=== PATIENT | female | born 1965 | race Caucasian/White ===

== ENCOUNTER 2020-10-24 10:12 | Emergency (ER) | payer MEDICAID ==
[~2020-10-24] VITALS: Ht 154.9 cm; Wt 109.3 kg
[2020-10-24 10:49] LABS: BASOPHILS % (AUTO) 0.7 % (0-1); EOSINOPHILS # (AUTO) 0.1 X10'3 (0-0.9); EOSINOPHILS % (AUTO) 2.1 % (0-6); HEMATOCRIT 42.9 % (35.0-45.0); HEMOGLOBIN 14.7 g/dl (12.0-16.0); LYMPHOCYTES % (AUTO) 30.7 % (21-51); MEAN CORPUSCULAR HGB CONC 34.2 g/dL (33.0-36.5); MEAN CORPUSCULAR VOLUME 84.7 FL (78-98); MEAN PLATELET VOLUME 8.8 FL (7.4-10.4); MONOCYTES # (AUTO) 0.6 X10'3 (0-0.9); MONOCYTES % (AUTO) 9.4 % (2-12); NEUTROPHILS # (AUTO) 3.7 X10'3 (1.8-7.7); NEUTROPHILS % (AUTO) 57.1 % (42-75); PLATELET COUNT 207 X10'3 (140-440); RED BLOOD COUNT 5.07 X10'6 (4.20-5.60); RED CELL DISTRIBUTION WIDTH 13.8 % (11.5-14.5); WHITE BLOOD COUNT 6.5 X10'3 (4.5-11.0)
[2020-10-24 11:04] LABS: ALANINE AMINOTRANSFERASE 48 U/L (12-78); ALBUMIN 3.9 G/DL (3.4-5.0); ALKALINE PHOSPHATASE 67 IU/L (46-116); AMYLASE 46 U/L (25-115); ANION GAP 6 (8-16); ASPARTATE AMINO TRANSFERASE 31 U/L (10-37); BILIRUBIN,TOTAL 0.3 MG/DL (0.1-1.0); BLOOD UREA NITROGEN 26 MG/DL (7-18); BUN/CREATININE RATIO 30.6 (6.6-38.0); CALCIUM 9.9 MG/DL (8.5-10.1); CHLORIDE 105 MMOL/L (99-107); CREATININE 0.85 MG/DL (0.40-0.90); GLUCOSE 104 MG/DL (70-104); LIPASE 146 U/L (73-393); POTASSIUM 4.4 MMOL/L (3.5-5.1); SODIUM 140 MMOL/L (135-145); TOTAL CARBON DIOXIDE 29.1 MMOL/L (24-32); TOTAL PROTEIN 7.7 G/DL (6.4-8.2); eGFR 70 ML/MIN
[2020-10-24 12:05] LABS: URINE HCG NEGATIVE (NEG)
[2020-10-24 12:09] LABS: CLARITY,URINE SLIGHTLY CLOUDY (Clear); COLOR,URINE YELLOW (Yellow); GLUCOSE, URINE NEGATIVE (Neg); KETONES,URINE NEGATIVE (Neg); LEUKOCYTE ESTERASE ,URINE NEGATIVE (Neg); NITRITES, URINE NEGATIVE (Neg); OCCULT BLOOD,URINE NEGATIVE (Neg); PROTEIN,URINE NEGATIVE (Neg); UROBILINOGEN,URINE 0.2 E.U/dL (0.2-1.0)
[2020-10-24 12:17] LABS: UA COLLECTION TYPE CLN CATCH MIDSTREAM
[2020-10-24 12:22] LABS: SQUAMOUS EPITHELIAL CELL,UR MODERATE /LPF (FEW)
[2020-10-24 12:25] LABS: BACTERIA,URINE FEW /HPF (Neg); RBC,URINE NONE SEEN /HPF (0-2); WBC,URINE 0-4 /HPF (0-4)
[2020-10-24] MEDS ORDERED: morphine 4 MG/ML inj SYRINge IV ONE (12:40)
[2020-10-24] MEDS ORDERED: ondansetron/PF 4mg/2ml inj IV ONE (12:40)
[2020-10-24] MEDS ORDERED: dicyclomine 10 MG capsule PO ONE (12:45)
[2020-10-24] MEDS ORDERED: pantoprazole 40 MG vial IV ONE (12:45)
[2020-10-24] MEDS ORDERED: LACT1CAP55 PO (14:02)
[2020-10-24] MEDS ORDERED: PANT-47 PO (14:03)
[2020-10-24] MEDS ORDERED: ONDA4TAB6 PO (14:03)
[2020-10-24 14:16] VITALS: BP 151/107
== END 2020-10-24 14:18 | disposition home or self-care (01) ==
LOC: ER 10:12
DX: K52.9 Noninfective gastroenteritis and colitis, unspecified (principal); R10.13 Epigastric pain; R10.11 Right upper quadrant pain; R11.10 Vomiting, unspecified; G89.29 Other chronic pain; Z79.899 Other long term (current) drug therapy
CPT/HCPCS: 36415; 80053; 81001; 81025; 82150; 83690; 84484; 85025; 93005; 96374; 96375; 99284; C9113; J2270; J2405

== ENCOUNTER 2021-01-24 05:29 | Inpatient (IN) | payer MEDICAID, OTHER ==
[2021-01-24] VITALS (18 sets, daily range): BP systolic 109–173; BP diastolic 65–104
[~2021-01-24] VITALS: Ht 154.9 cm; Wt 109.1 kg
[~2021-01-24 05:29] MED LIST: LACT1CAP55 PO; ONDA4TAB6 PO; PANT-47 PO
[2021-01-24] MEDS ORDERED: ondansetron/PF 4mg/2ml inj IV ONE (05:35)
[2021-01-24] MEDS ORDERED: morphine 4 MG/ML inj SYRINge IV PRN ×2 (05:35→13:50)
[2021-01-24] MEDS ORDERED: normal saline 1000ML IV soln IVB ONE (05:35)
[2021-01-24 06:21] LABS: BASOPHILS % (AUTO) 0.6 % (0-1); EOSINOPHILS # (AUTO) 0.1 X10'3 (0-0.9); EOSINOPHILS % (AUTO) 1.7 % (0-6); HEMATOCRIT 43.9 % (35.0-45.0); HEMOGLOBIN 14.9 g/dl (12.0-16.0); LYMPHOCYTES # (AUTO) 2.5 X10'3 (1.1-4.8); LYMPHOCYTES % (AUTO) 30.1 % (21-51); MEAN CORPUSCULAR HEMOGLOBIN 28.1 PG (27.0-31.0); MEAN CORPUSCULAR HGB CONC 33.8 g/dL (33.0-36.5); MEAN CORPUSCULAR VOLUME 82.9 FL (78-98); MEAN PLATELET VOLUME 9.3 FL (7.4-10.4); MONOCYTES # (AUTO) 0.6 X10'3 (0-0.9); MONOCYTES % (AUTO) 6.7 % (2-12); NEUTROPHILS % (AUTO) 60.9 % (42-75); PLATELET COUNT 229 X10'3 (140-440); WHITE BLOOD COUNT 8.2 X10'3 (4.5-11.0)
[2021-01-24 06:32] LABS: ALANINE AMINOTRANSFERASE 56 U/L (12-78); ALKALINE PHOSPHATASE 67 IU/L (46-116); ANION GAP 8 (8-16); ASPARTATE AMINO TRANSFERASE 34 U/L (10-37); BILIRUBIN,TOTAL 0.4 MG/DL (0.1-1.0); BLOOD UREA NITROGEN 19 MG/DL (7-18); BUN/CREATININE RATIO 22.6 (6.6-38.0); CALCIUM 10.1 MG/DL (8.5-10.1); CHLORIDE 104 MMOL/L (99-107); CREATININE 0.84 MG/DL (0.40-0.90); GLUCOSE 126 MG/DL (70-104); POTASSIUM 4.2 MMOL/L (3.5-5.1); SODIUM 140 MMOL/L (135-145); TOTAL CARBON DIOXIDE 28.5 MMOL/L (24-32); TOTAL PROTEIN 7.9 G/DL (6.4-8.2); eGFR 71 ML/MIN
[2021-01-24 06:36] LABS: LIPASE 106 U/L (73-393); TROPONIN I < 0.04 NG/ML (0.0-0.05)
[2021-01-24 06:41] LABS: CLARITY,URINE CLEAR (Clear); COLOR,URINE STRAW (Yellow); GLUCOSE, URINE NEGATIVE (Neg); KETONES,URINE NEGATIVE (Neg); LEUKOCYTE ESTERASE ,URINE NEGATIVE (Neg); NITRITES, URINE NEGATIVE (Neg); OCCULT BLOOD,URINE NEGATIVE (Neg); PROTEIN,URINE NEGATIVE (Neg); UROBILINOGEN,URINE 0.2 E.U/dL (0.2-1.0)
[2021-01-24 06:43] LABS: UA COLLECTION TYPE CLN CATCH MIDSTREAM
[2021-01-24] MEDS ORDERED: ondansetron/PF 4mg/2ml inj IV PRN ×2 (09:35→13:50)
[2021-01-24] MEDS ORDERED: bisacodyl 10mg suppository rectal RC PRN (09:35)
[2021-01-24] MEDS ORDERED: magnesium 2GM in 50ml NS 50 ML IV PRN (09:35)
[2021-01-24] MEDS ORDERED: potassium Cl 40MEQ/1/2NS 520ml 520 ML IV PRN ×2 (09:35)
[2021-01-24] MEDS ORDERED: magnesium 4gm in 100ml NS 100 ML IV PRN (09:35)
[2021-01-24] MEDS ORDERED: potassium Cl 20 mEq SR tablet PO PRN ×2 (09:35)
[2021-01-24] MEDS ORDERED: morphine 2 MG/ML inj. syringe IV PRN ×3 (09:35→13:50)
[2021-01-24] MEDS ORDERED: magnesium Cl slow-release 64mg tablet PO PRN (09:35)
[2021-01-24] MEDS ORDERED: acetaminophen 325mg tablet PO PRN (09:35)
--- NOTE | 2021-01-24 10:10 | NUR ---
Patient in room ED 13. I have received report from MARIA ALEJANDRA MICHELLE and had the opportunity to ask questions and assume patient care.
[2021-01-24] MEDS: normal saline 1000ml 1,000 ML IV SCH ×2 (11:08→20:06)
[2021-01-24] MEDS ORDERED: FLU VACC QS2020-21(6MOS UP)/PF 60 MCG/0.5 ML SYRINGE IMVAC ONE (11:25)
[2021-01-24] MEDS ORDERED: pneumococcal 23-VAL P-sac vacc 25 mcg/0.5ml vial IMVAC ONE (11:25)
[2021-01-24] MEDS ORDERED: INDOCYANINE GREEN 25 MG/10 ML VIAL IV STA ×2 (12:58→13:31)
[2021-01-24] MEDS ORDERED: proCHLORperazine 10 MG/2 ml inj IV PRN (13:50)
[2021-01-24] MEDS ORDERED: meperidine/PF 25mg/ml syringe IV PRN ×3 (13:50)
[2021-01-24] MEDS ORDERED: ringers solution, lacted 1,000 ML IV SCH (13:50)
[2021-01-24] MEDS ORDERED: LIDOcaine 1% 30ml preserv. free vial ONE (14:14)
[2021-01-24] MEDS ORDERED: BUPIVAcaine/PF 2.5 mg/ml (0.25%) 30ml vial ONE (14:15)
[2021-01-24] MEDS: ampicillin/sulbac 3gm/NS 100ml 100 ML IV SCH ×2 (14:31→20:06)
--- NOTE | 2021-01-24 14:51 | NUR ---
CALLED REPORT TO MIMI MERCADO RN
[2021-01-24] MEDS ORDERED: midazolam 1 mg/ML 2ml injection ONE (15:10)
[2021-01-24] MEDS ORDERED: fentaNYL /PF 50mcg/ml 5ml ampule ONE (15:11)
[2021-01-24] MEDS ORDERED: rocuronium 10mg/ml inj IV ONE (15:12)
[2021-01-24] MEDS ORDERED: dexamethasone sod phosphate 4mg/ml inj. ONE (15:12)
[2021-01-24] MEDS ORDERED: LIDOcaine 2% (20mg/ml) 5ml vial ONE (15:12)
[2021-01-24] MEDS ORDERED: propofol inj 20 ML IV ONE (15:12)
[2021-01-24] MEDS ORDERED: ondansetron/PF 4mg/2ml inj ONE (15:12)
[2021-01-24] MEDS ORDERED: ceFAZolin 1000mg inj ONE ×2 (15:29)
[2021-01-24] MEDS ORDERED: labetalol 20mg/4ml (5mg/ml) syringe IV ONE (16:15)
[2021-01-24] MEDS ORDERED: acetaminophen 1,000mg/100ml IV 100 ML IV ONE (16:17)
--- NOTE | 2021-01-24 16:34 | NUR ---
Received from OR via bed, accompanied by Anesthesiologist and report given by Anesthesiologist. PATIENT IS SLEEPING, ON O2 10L WITH MASK, PIV 20G ON RIGHT AC, FOUR BANDAGES ON ABD AT SURGICAL INCISION SITES, CDI WITH NO DRAINAGE OR BLEEDING. WILL MONITOR. Addendum: 01/24/21 at 1654 by Carmella Land RN Amended: Links added.
[2021-01-24] MEDS ORDERED: glycopyrrolate 0.2mg/ml inj ONE (16:47)
[2021-01-24] MEDS ORDERED: sevoflurane 250ml liquid IH ONE (16:47)
[2021-01-24] MEDS ORDERED: ePHEDrine 50MG/ML INJ. ONE (16:47)
[2021-01-24] MEDS ORDERED: HYDROcodone/acetaminophen 5mg/325mg tablet PO PRN (16:55)
--- NOTE | 2021-01-24 17:24 | NUR ---
Report called to receiving nurse LI. Transferred via BED WITH NO BELONGINGS. FOUR BANDAGES CDI ON ANTERIOR ABD, NO DRAINAGE OR BLEEDING FROM THE INCISION SITES, PIV ON LEFT AC LR RUNNING AT 100ML/HR, PATIENT STATES PAIN HAS IMPROVED AND DENIES PAIN AT THIS TIME. PATIENT IS AWAKE AND RESPONDS TO VOICE AND QUESTIONS. BED IS LOW, SIDE RAILS UP, RECEIVING NURSE AID IS AT THE BED SIDE, LI IS NOTIFIED THAT THE PATIENT WAS TRANSFERRED TO THE ROOM. Addendum: 01/24/21 at 1745 by Carmella Land RN Amended: Links added.
--- NOTE | 2021-01-24 18:48 | NUR ---
Problems reprioritized. Patient report given, questions answered & plan of care reviewed with MILLICENT MICHELLE.
[2021-01-24] MEDS: K and/or MAG REPLACEMENT MC SCH (20:00)
[2021-01-24] MEDS ORDERED: famotidine/PF 10 mg/ml inj IV SCH (20:00)
[2021-01-24] MEDS: lactobacillus rhamnosus 10,000 MMU CELLS/CAPSULE PO SCH (20:06)
[2021-01-24] MEDS: heparin, porcine 5000 units/ml vial SQ SCH (20:07)
[2021-01-24] MEDS: HYDROcodone/acetaminophen 10/325mg tab PO PRN (20:53)
[2021-01-25] VITALS: BP 143/76
[2021-01-25] MEDS: ampicillin/sulbac 3gm/NS 100ml 100 ML IV SCH ×2 (02:11→08:58)
[2021-01-25] MEDS: HYDROcodone/acetaminophen 10/325mg tab PO PRN ×3 (04:03→14:20)
[2021-01-25] MEDS: normal saline 1000ml 1,000 ML IV SCH ×2 (05:38→07:13)
--- NOTE | 2021-01-25 06:05 | NUR ---
Patient in room [facility] 344. I have received report from MIGUEL ANGEL Rice and had the opportunity to ask questions and assume patient care.
[2021-01-25 06:20] LABS: BASOPHILS % (AUTO) 0.1 % (0-1); EOSINOPHILS % (AUTO) 0 % (0-6); HEMATOCRIT 41.9 % (35.0-45.0); HEMOGLOBIN 14.3 g/dl (12.0-16.0); LYMPHOCYTES # (AUTO) 1.2 X10'3 (1.1-4.8); LYMPHOCYTES % (AUTO) 10.8 % (21-51); MEAN CORPUSCULAR HEMOGLOBIN 28.8 PG (27.0-31.0); MEAN CORPUSCULAR VOLUME 84.6 FL (78-98); MEAN PLATELET VOLUME 9.1 FL (7.4-10.4); MONOCYTES # (AUTO) 0.8 X10'3 (0-0.9); MONOCYTES % (AUTO) 7.4 % (2-12); NEUTROPHILS # (AUTO) 8.9 X10'3 (1.8-7.7); NEUTROPHILS % (AUTO) 81.7 % (42-75); PLATELET COUNT 232 X10'3 (140-440); RED BLOOD COUNT 4.95 X10'6 (4.20-5.60); RED CELL DISTRIBUTION WIDTH 14.2 % (11.5-14.5); WHITE BLOOD COUNT 10.9 X10'3 (4.5-11.0)
[2021-01-25 06:30] VITALS: BP 119/56
[2021-01-25 06:47] LABS: ALANINE AMINOTRANSFERASE 54 U/L (12-78); ALBUMIN 3.5 G/DL (3.4-5.0); ALBUMIN/GLOBULIN RATIO 0.9 (1.1-1.5); ALKALINE PHOSPHATASE 57 IU/L (46-116); ANION GAP 12 (8-16); ASPARTATE AMINO TRANSFERASE 34 U/L (10-37); BILIRUBIN,TOTAL 0.5 MG/DL (0.1-1.0); BLOOD UREA NITROGEN 10 MG/DL (7-18); BUN/CREATININE RATIO 12.5 (6.6-38.0); CHLORIDE 105 MMOL/L (99-107); GLUCOSE 128 MG/DL (70-104); POTASSIUM 4.1 MMOL/L (3.5-5.1); SODIUM 140 MMOL/L (135-145); TOTAL CARBON DIOXIDE 23.5 MMOL/L (24-32); TOTAL PROTEIN 7.3 G/DL (6.4-8.2); eGFR 75 ML/MIN
[2021-01-25] MEDS: K and/or MAG REPLACEMENT MC SCH (07:41)
[2021-01-25] MEDS: lactobacillus rhamnosus 10,000 MMU CELLS/CAPSULE PO SCH (08:58)
[2021-01-25] MEDS: heparin, porcine 5000 units/ml vial SQ SCH (08:59)
[2021-01-25] MEDS ORDERED: FLU VACC QS2020-21(6MOS UP)/PF 60 MCG/0.5 ML SYRINGE IMVAC ONE ×2 (10:00→16:45)
[2021-01-25] MEDS ORDERED: pneumococcal 23-VAL P-sac vacc 25 mcg/0.5ml vial IMVAC ONE ×2 (10:00→16:45)
[2021-01-25] MEDS ORDERED: HYDR-3972 PO ×2 (10:33→15:12)
[2021-01-25 11:00] VITALS: BP 110/66
--- NOTE | 2021-01-25 15:00 | NUR ---
DC inst provided to pt. IV DC'd, tip intact. 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
--- NOTE | 2021-01-25 15:30 | NUR ---
Problems reprioritized. Patient report given, questions answered & plan of care reviewed with MIGUEL ANGEL Beebe.
--- NOTE | 2021-01-25 15:37 | NUR ---
Pt has signed DC'g paperwork, IV has been DC'd, pt is wearing personal clothes to go home in, and denies any pain, questions or needs at this time. I shall observe pt until ride arrives.
== END 2021-01-25 18:46 | disposition home or self-care (01) | DRG 263 ==
LOC: ER 05:29 → ED HOLD 09:32 → SUR 3N 10:20
PROVIDERS: ADMIT Family Medicine; ATTEND Family Medicine
PROC: 8E0W4CZ Robotic Assisted Procedure of Trunk Region, Percutaneous Endoscopic Approach (ICD-10-PCS; 2021-01-24)
PROC: BF131ZZ Fluoroscopy of Gallbladder and Bile Ducts using Low Osmolar Contrast (ICD-10-PCS; 2021-01-24)
PROC: 0FT44ZZ Resection of Gallbladder, Percutaneous Endoscopic Approach (ICD-10-PCS; principal; 2021-01-24 15:02)
DX: K80.00 Calculus of gallbladder with acute cholecystitis without obstruction (principal); E66.9 Obesity, unspecified; B19.20 Unspecified viral hepatitis C without hepatic coma; G89.29 Other chronic pain; Z20.822 Contact with and (suspected) exposure to COVID-19; K21.9 Gastro-esophageal reflux disease without esophagitis; M54.9 Dorsalgia, unspecified; Z80.3 Family history of malignant neoplasm of breast; Z82.49 Family history of ischemic heart disease and other diseases of the circulatory system; Z98.891 History of uterine scar from previous surgery; Z28.21 Immunization not carried out because of patient refusal; Z88.2 Allergy status to sulfonamides; Z68.42 Body mass index [BMI] 45.0-49.9, adult; Z79.899 Other long term (current) drug therapy; Z81.1 Family history of alcohol abuse and dependence
CPT/HCPCS: 36415; 74176; 76700; 80053; 81003; 82948; 83605; 83690; 83735; 84484; 85025; 87040; 87081; 87426; 90732; 93005; 96374; 99285; A4215; A4618; A7000; G0378; J0131; J0295; J0690; J1100; J1644; J2001; J2250; J2270; J2405; J2704; J3010; J3490; J7030; J7120; Q2039